=== PATIENT | female | born 1995 ===

== ENCOUNTER 2017-09-12 09:45 | Emergency (ER) | payer OTHER ==
[2017-09-12] MEDS ORDERED: Ibuprofen PED LIQ 100 MG/5 ML UDC PO ONE (11:47)
--- NOTE | 2017-09-12 12:11 | UC ---
Throat Pain/Nasal Quintin HPI - HPI Summary HPI Summary: 22 yo female with the onset of sore throat and fever about a day ago chills nausea malaise myalgias - History of Current Complaint Chief Complaint: UCRespiratory Stated Complaint: SORE THROAT, FEVER Time Seen by Provider: 09/12/17 11:41 Hx Obtained From: Patient Hx Last Menstrual Period: 08/18/2017 Onset/Duration: Gradual Onset, Lasting Hours Severity: Severe Pain Intensity: 7 Pain Scale Used: 0-10 Numeric Cough: None Associated Signs & Symptoms: Positive: Fever - Epiglottits Risk Factors Epiglottis Risk Factors: Negative - Allergies/Home Medications Allergies/Adverse Reactions: Allergies Allergy/AdvReac Type Severity Reaction Status Date / Time No Known Allergies Allergy Verified 09/12/17 10:37 Home Medications: Home Medications Acetaminophen [Tylenol] 325 mg PO 09/12/17 [History] PMH/Surg Hx/FS Hx/Imm Hx Previously Healthy: Yes - Surgical History Surgical History: Yes Surgery Procedure, Year, and Place: Bladder cyst removed as child - Family History Known Family History: Positive: Hypertension - Social History Alcohol Use: None Substance Use Type: None Smoking Status (MU): Never Smoked Tobacco Review of Systems Constitutional: Fever, Chills Skin: Negative Eyes: Negative ENT: Sore Throat Respiratory: Negative Cardiovascular: Negative Gastrointestinal: Nausea Genitourinary: Negative Motor: Negative Neurovascular: Negative Musculoskeletal: Myalgia Neurological: Headache Psychological: Negative Is Patient Immunocompromised?: No All Other Systems Reviewed And Are Negative: Yes Physical Exam Triage Information Reviewed: Yes Appearance: Well-Appearing, No Pain Distress, Well-Nourished Vital Signs: Initial Vital Signs Temp 100.8 F 09/12/17 10:39 Pulse 99 09/12/17 10:39 Resp 20 09/12/17 10:39 BP 127/85 09/12/17 10:39 Pulse Ox 100 09/12/17 10:39 Eyes: Positive: Conjunctiva Clear ENT: Positive: Hearing grossly normal, Pharyngeal erythema, Tonsillar swelling, Tonsillar exudate, Uvula midline. Negative: Nasal drainage, TMs normal, Muffled voice, Hoarse voice Neck: Positive: Supple, Tenderness @ - anterior cervical, Enlarged Nodes @ - ant cervical Respiratory: Positive: Lungs clear, Normal breath sounds, No respiratory distress Cardiovascular: Positive: RRR, No Murmur Abdomen Description: Positive: Nontender, Soft. Negative: CVA Tenderness (R), CVA Tenderness (L) Musculoskeletal: Positive: ROM Intact, No Edema Neurological Exam: Normal Neurological: Positive: Alert Psychological Exam: Normal Skin Exam: Normal Diagnostics - Laboratory Diagnostic Studies Completed/Ordered: FLU A (+) - Radiology No standard instances Xray Interpretation: No Acute Changes - CXR- Radiology Interpretation Completed By: Radiologist Throat Pain/Nasal Course/Dx - Differential Dx/Diagnosis Provider Diagnoses: influenza A Discharge - Discharge Plan Condition: Stable Disposition: HOME Prescriptions: Oseltamivir CAP* [Tamiflu CAP*] 75 mg PO BID #10 cap Patient Education Materials: Influenza (ED) Forms: *School Release Referrals: No Primary Care Phys,NOPCP [Primary Care Provider] - Additional Instructions: rest fluids tylenol or ibuprofen if needed tamiflu twice daily for 5 days recheck in 3-4 days if not better chest XR normal
--- NOTE | 2017-09-12 13:13 | RAD ---
HISTORY: Fever, cough COMPARISONS: None VIEWS: 4: Frontal dual-energy and lateral views of the chest. FINDINGS: CARDIOMEDIASTINAL SILHOUETTE: The cardiomediastinal silhouette is normal. GIOVANNI: The giovanni are normal. PLEURA: The costophrenic angles are sharp. No pleural abnormalities are noted. LUNG PARENCHYMA: The lungs are clear. ABDOMEN: The upper abdomen is clear. There is no subphrenic gas. BONES AND SOFT TISSUES: No bone or soft tissue abnormalities are noted. OTHER: None. IMPRESSION: NO ACTIVE CARDIOPULMONARY DISEASE.
== END 2017-09-12 13:40 | disposition home or self-care (01) ==
LOC: UCEAST 09:45
DX: J09.X2 Influenza due to identified novel influenza A virus with other respiratory manifestations (principal)
CPT/HCPCS: 71046; 87502; 87651; 99202; G0463